=== PATIENT | female | born 1955 | race Caucasian/White ===

== ENCOUNTER → 2017-07-22 22:04 | Outpatient (CLI) | payer OTHER | END | disposition home or self-care (01) | LOC: D.MAMMO 15:30 | DX: Z12.31 Encounter for screening mammogram for malignant neoplasm of breast (principal) ==

== ENCOUNTER → 2018-12-21 07:55 | Outpatient (CLI) | payer OTHER | END | disposition home or self-care (01) | LOC: D.RT 07:55 | PROVIDERS: ATTEND Pediatrics | DX: Z01.89 Encounter for other specified special examinations (principal) ==

== ENCOUNTER → 2019-07-12 18:48 | Outpatient (CLI) | payer OTHER | END | disposition home or self-care (01) | LOC: D.MAMMO 07-03 11:00 | PROVIDERS: ATTEND Internal Medicine | DX: Z12.31 Encounter for screening mammogram for malignant neoplasm of breast (principal) ==